=== PATIENT | male | born 1985 ===

== ENCOUNTER 2017-10-29 20:16 | Emergency (ER) | payer BC ==
[2017-10-29] MEDS ORDERED: Amoxicillin/Clavulanate K 875-125 MG Tab ONE (20:30)
--- NOTE | 2017-10-29 23:33 | ER ---
HPI: A 32-year-old male here with complaints of ringing in his ear that has been ongoing for over a week. He has had a few episodes of dizziness. He was even nauseated on a couple of occasions. The last time this happened was today. He was working on a power line where he was spraying under brush, and he was looking up and down a lot when he noticed the symptoms developed. The patient has not had any falls or injuries. He has not had any bleeding or drainage from either ear. He does not feel sick. He tells me that he feels fine since mid afternoon after the symptoms developed. OBJECTIVE: GENERAL APPEARANCE: The patient is awake and alert. No obvious distress. VITAL SIGNS: Reviewed as listed. Physical exam, eyes, pupils equal, round, and reactive to light. EOMs are intact. Ears, TMs are both bulging with yellow mucus behind them. There is just slightly dusky in nature bilaterally. There is no wax buildup or damage to either ear canal. Oral mucous membranes moist. Tonsils not enlarged or injected. Pharynx not inflamed. NECK: Supple with full and unguarded range of motion. LUNGS: Clear. Hallpike maneuver is negative. DIAGNOSES: 1. Serous otitis media. 2. Tinnitus, episodic. 3. Vertigo, episodic. TREATMENT PLAN: I will put the patient on Augmentin. I also want him to purchase a decongestant such as Sudafed and take it regularly for a couple of days and then as needed. Activity should be as tolerated. Followup is p.r.n. CRS/MODL /[id number]
== END 2017-10-29 20:36 ==
LOC: LB.ED 20:16
DX: H65.93 Unspecified nonsuppurative otitis media, bilateral (principal); H93.13 Tinnitus, bilateral; R42 Dizziness and giddiness
CPT/HCPCS: 99282; A9270-GY